=== PATIENT | male | born 1975 ===

== ENCOUNTER 2025-03-18 20:37 | Emergency (ER) | payer SELFPAY ==
[2025-03-18 20:56] VITALS: BP 152/109; PULSE 88; RESP 18; TEMP 36.2; O2SAT 99
--- NOTE | 2025-03-18 23:43 | PC.NURSE ---
Called pt's name in waiting room 2x and no answer. Intake nurse notified.
--- NOTE | 2025-03-18 23:46 | PC.NURSE ---
Pt called x2 w no response. Pt removed from tracker at this time as left wo being seen.
== END 2025-03-18 23:43 | disposition left against medical advice (07) ==
LOC: ANHED 03-19 00:15
DX: R19.7 Diarrhea, unspecified (principal)
CPT/HCPCS: 99199